=== PATIENT | male | born 1985 | race Asian ===

== ENCOUNTER 2016-10-21 12:52 | Emergency (ER) | payer OTHER ==
[~2016-10-21] VITALS: Ht 182.9 cm; Wt 72.6 kg
[2016-10-21 12:53] VITALS: BP 145/67
== END 2016-10-21 13:11 | disposition home or self-care (01) ==
LOC: ER 12:55
DX: R51 Headache (principal)
CPT/HCPCS: 70450-TC; A4606; Z7610